=== PATIENT | female | born 1945 | race Caucasian/White ===

== ENCOUNTER 2020-12-05 08:07 | Emergency (ER) | payer BC ==
[2020-12-05] MEDS ORDERED: Sodium Chloride 0.9% 10 ML Syringe FLUSH PRN (08:41)
[2020-12-05 09:56] LABS: CHLORIDE,CL 112 mmol/L (98-107); SODIUM,NA 146 mmol/L (136-145)
[2020-12-05 09:59] LABS: ANION GAP 14.8 meq/L (7-15)
--- NOTE | 2020-12-05 10:36 | EDM.PDOC ---
ED HPI GENERAL MEDICAL PROBLEM - General Chief Complaint: Neuro Symptoms/Deficits Stated Complaint: stroke code Time Seen by Provider: 12/05/20 08:08 Source of Information: Reports: Patient, Family History Limitations: Reports: No Limitations - History of Present Illness INITIAL COMMENTS - FREE TEXT/NARRATIVE: Patient comes to ER with new left sided mouth droop and slurred speech. Last known well was around 3-3:30am when she got up to go to use bathroom. 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 Left arm weakness is worse than usual this morning. - Related Data Home Meds: Home Meds Aspirin [Aspirin EC] 325 mg PO DAILY 12/05/20 [History] Cholecalciferol (Vitamin D3) [Vitamin D3] 1,000 unit PO DAILY 12/05/20 [History] Darifenacin Hydrobromide [Darifenacin ER] 7.5 mg PO DAILY 12/05/20 [History] Gabapentin [Neurontin] 300 mg PO QID 12/05/20 [History] Multivitamin [Multivitamins] 1 each PO DAILY 12/05/20 [History] amLODIPine [Norvasc] 5 mg PO DAILY 12/05/20 [History] atorvaSTATin Calcium [Atorvastatin Calcium] 80 mg PO DAILY 12/05/20 [History] Past Medical History Cardiovascular History: Reports: High Cholesterol, Hypertension Genitourinary History: Reports: Other (See Below) (overactive bladder) Musculoskeletal History: Reports: Osteoarthritis (chronic back pain) Neurological History: Reports: CVA ED ROS GENERAL - Review of Systems Review Of Systems: See Below Constitutional: Reports: No Symptoms HEENT: Reports: No Symptoms Respiratory: Reports: No Symptoms Cardiovascular: Reports: No Symptoms GI/Abdominal: Reports: No Symptoms : Reports: No Symptoms Musculoskeletal: Reports: Shoulder Pain (left), Other (hip pain left) Skin: Reports: No Symptoms Neurological: Reports: Pre-Existing Deficit, Change in Speech, Other (increased left arm weakness, left facial droop, slurred speech) Psychiatric: Reports: No Symptoms Hematologic/Lymphatic: Reports: No Symptoms Immunologic: Reports: No Symptoms ED EXAM, GENERAL - Physical Exam Exam: See Below Exam Limited By: No Limitations General Appearance: Alert, No Apparent Distress Eye Exam: Bilateral Eye: EOMI, PERRL Ears: Hearing Grossly Normal Nose: No: Nasal Deformity, Nasal Swelling, Nasal Drainage Throat/Mouth: Normal Lips, No Airway Compromise Head: Other (Left corner of mouth droop) Neck: Supple Respiratory/Chest: No Respiratory Distress, Lungs Clear, Normal Breath Sounds, No Accessory Muscle Use Cardiovascular: Regular Rate, Rhythm, No Murmur GI/Abdominal: Soft, Non-Tender (Female) Exam: Deferred Rectal (Female) Exam: Deferred Back Exam: No: Muscle Spasm Extremities: Non-Tender, Normal Capillary Refill Neurological: Alert, Sensory/Motor Deficit (Left arm weakness/left corner mouth droop. Did not know year/unable to say name initially) Psychiatric: Normal Affect, Normal Mood Skin Exam: Warm, Dry, Intact, Normal Color #1 Interpretation EKG Date: 12/05/20 Time: 08:28 Rhythm: NSR Rate (Beats/Min): 100 [place]: Normal P-Wave: Present QRS: Other (intraventricular conduction delay) ST-T: Other (No obvious acute changes suggestive of ischemia) QT: Normal Comparison: NA - No Prior EKG Course - Orders/Labs/Meds Orders: Active Orders 24 hr Category Date Time Status EKG Documentation Completion [RC] ASDIRECTED Care 12/05/20 08:48 Active Chest 1V Frontal [CR] Stat Exams 12/05/20 08:33 Taken Head wo Cont [CT] Stat Exams 12/05/20 08:27 Taken UA W/MICROSCOPIC [URIN] Stat Lab 12/05/20 08:41 Ordered Sodium Chloride 0.9% [Saline Flush] Med 12/05/20 08:41 Active 10 ml FLUSH ASDIRECTED PRN Saline Lock Insert [OM.PC] Stat Oth 12/05/20 08:45 Ordered Medication Orders Sodium Chloride (Sodium Chloride 0.9% 10 Ml Syringe) 10 ml FLUSH ASDIRECTED PRN PRN Reason: Keep Vein Open Labs: Laboratory Tests 12/05/20 12/05/20 12/05/20 Range/Units 08:50 08:50 08:50 WBC (4.0-10.2) K/uL RBC (3.77-5.09) M/uL Hgb (11.7-15.5) g/dL Hct (34.0-46.0) % MCV (84.0-98.0) fL MCH (28.2-33.3) pg MCHC (31.7-36.0) g/dL RDW (11.2-14.1) % Plt Count (150-350) K/uL Add Manual Diff Neutrophils % (Manual) Lymphocytes % (Manual) Monocytes % (Manual) Eosinophils % (Manual) Absolute Neutrophils Lymphocytes # (Manual) Monocytes # (Manual) Eosinophils # (Manual) PT 11.1 (9.5-12.0) SEC INR 1.1 APTT (24.5-32.8) SEC D-Dimer, Quantitative 1650 H (0-400) ng/mL Sodium (136-145) mmol/L Potassium (3.5-5.1) mmol/L Chloride (98-107) mmol/L Carbon Dioxide (21.0-32.0) mmol/L Anion Gap (7-15) meq/L BUN (7-18) mg/dL Creatinine (0.51-1.17) mg/dL Est Cr Clr Drug Dosing Estimated GFR (MDRD) mL/min Glucose (70-99) mg/dL POC Glucose (70-99) mg/dL Lactic Acid (0.4-2.0) mmol/L Calcium (8.5-10.1) mg/dL Magnesium 2.0 (1.8-2.4) mg/dL Total Bilirubin (0.2-1.0) mg/dL AST (15-37) U/L ALT (12-78) U/L Alkaline Phosphatase (46-116) IU/L Troponin I High Sens 60 H* (<=51) ng/L NT-Pro-B Natriuret Pep 200 H (0-125) pg/mL Total Protein (6.4-8.2) g/dL Albumin (3.4-5.0) g/dL 12/05/20 12/05/20 12/05/20 Range/Units 08:50 08:50 08:50 WBC 28.2 H (4.0-10.2) K/uL RBC 5.15 H (3.77-5.09) M/uL Hgb 15.0 (11.7-15.5) g/dL Hct 46.7 H (34.0-46.0) % MCV 90.7 (84.0-98.0) fL MCH 29.1 (28.2-33.3) pg MCHC 32.1 (31.7-36.0) g/dL RDW 15.4 H (11.2-14.1) % Plt Count 782 H (150-350) K/uL Add Manual Diff Yes Neutrophils % (Manual) 84 Lymphocytes % (Manual) 5 Monocytes % (Manual) 10 Eosinophils % (Manual) 1 Absolute Neutrophils 23.6880 Lymphocytes # (Manual) 1.4100 Monocytes # (Manual) 2.8200 Eosinophils # (Manual) 0.2820 PT (9.5-12.0) SEC INR APTT 23.0 L (24.5-32.8) SEC D-Dimer, Quantitative (0-400) ng/mL Sodium (136-145) mmol/L Potassium (3.5-5.1) mmol/L Chloride (98-107) mmol/L Carbon Dioxide (21.0-32.0) mmol/L Anion Gap (7-15) meq/L BUN (7-18) mg/dL Creatinine (0.51-1.17) mg/dL Est Cr Clr Drug Dosing Estimated GFR (MDRD) mL/min Glucose (70-99) mg/dL POC Glucose (70-99) mg/dL Lactic Acid 1.6 (0.4-2.0) mmol/L Calcium (8.5-10.1) mg/dL Magnesium (1.8-2.4) mg/dL Total Bilirubin (0.2-1.0) mg/dL AST (15-37) U/L ALT (12-78) U/L Alkaline Phosphatase (46-116) IU/L Troponin I High Sens (<=51) ng/L NT-Pro-B Natriuret Pep (0-125) pg/mL Total Protein (6.4-8.2) g/dL Albumin (3.4-5.0) g/dL 12/05/20 12/05/20 Range/Units 08:50 08:50 WBC (4.0-10.2) K/uL RBC (3.77-5.09) M/uL Hgb (11.7-15.5) g/dL Hct (34.0-46.0) % MCV (84.0-98.0) fL MCH (28.2-33.3) pg MCHC (31.7-36.0) g/dL RDW (11.2-14.1) % Plt Count (150-350) K/uL Add Manual Diff Neutrophils % (Manual) Lymphocytes % (Manual) Monocytes % (Manual) Eosinophils % (Manual) Absolute Neutrophils Lymphocytes # (Manual) Monocytes # (Manual) Eosinophils # (Manual) PT (9.5-12.0) SEC INR APTT (24.5-32.8) SEC D-Dimer, Quantitative (0-400) ng/mL Sodium 146 H (136-145) mmol/L Potassium 3.4 L (3.5-5.1) mmol/L Chloride 112 H (98-107) mmol/L Carbon Dioxide 22.6 (21.0-32.0) mmol/L Anion Gap 14.8 (7-15) meq/L BUN 19 H (7-18) mg/dL Creatinine 0.86 (0.51-1.17) mg/dL Est Cr Clr Drug Dosing TNP Estimated GFR (MDRD) > 60 mL/min Glucose 124 H (70-99) mg/dL POC Glucose 113 H (70-99) mg/dL Lactic Acid (0.4-2.0) mmol/L Calcium 8.3 L (8.5-10.1) mg/dL Magnesium (1.8-2.4) mg/dL Total Bilirubin 1.5 H (0.2-1.0) mg/dL AST 28 (15-37) U/L ALT 39 (12-78) U/L Alkaline Phosphatase 105 (46-116) IU/L Troponin I High Sens (<=51) ng/L NT-Pro-B Natriuret Pep (0-125) pg/mL Total Protein 6.5 (6.4-8.2) g/dL Albumin 3.8 (3.4-5.0) g/dL Meds: Medications Generic Name Dose Route Start Last Admin Trade Name Freq PRN Reason Stop Dose Admin Sodium Chloride 10 ml 12/05/20 08:41 Sodium Chloride 0.9% 10 Ml Syringe FLUSH ASDIRECTED PRN Keep Vein Open - Radiology Interpretation Free Text/Narrative:: Chest xray portable. Some patchiness suggestive of CHF noted. Somewhat increased right lower lung field. - Re-Assessments/Exams Free Text/Narrative Re-Assessment/Exam: 12/05/20 10:[address] performed shortly after arrival. STroke scale 9. Labs performed. WBC quite elevated at 28.2 Platelets 782 DDimer 1650 Na increased at 146 K mild decrease 3.4 Trop mildly elevated at 60 Patient denies chest pain. Has chronic left shoulder and hip pain which has been bothering her. No obvious acute change in pain pattern per patient. No obvious ST changes suggestive of acute ischemia on EKG. ProBNP mildly elevated at 200. Vital signs stable. Call placed to [facility] and patient discussed with from Neuro. Not candidate for Alteplase. Patient noted to be improving at that time with better movement of left arm. Plans made to transfer patient to [facility] for CTA and possible MRI imaging with as accepting MD. [facility] notified of abnormal labs. Transferred by ground ambulance. Departure - Departure Time of Disposition: 10:15 Disposition: DC/Tfer to [facility] Condition: Good Clinical Impression: Stroke-like symptoms, Elevated troponin, Thrombocythemia, Elevated d-dimer, Hypernatremia, Hypokalemia, Elevated brain natriuretic peptide (BNP) level Elevated WBC count Qualifiers: Leukocytosis type: unspecified Qualified Code(s): D72.829 - Elevated white blood cell count, unspecified - Discharge Information *PRESCRIPTION DRUG MONITORING PROGRAM REVIEWED*: Not Applicable *COPY OF PRESCRIPTION DRUG MONITORING REPORT IN PATIENT FELIBERTO: Not Applicable - My Orders Last 24 Hours: My Active Orders 12/05/20 08:27 Head wo Cont [CT] Stat 12/05/20 08:33 Chest 1V Frontal [CR] Stat 12/05/20 08:41 UA W/MICROSCOPIC [URIN] Stat Sodium Chloride 0.9% [Saline Flush] 10 ml FLUSH ASDIRECTED PRN 12/05/20 08:45 Saline Lock Insert [OM.PC] Stat 12/05/20 08:48 EKG Documentation Completion [RC] ASDIRECTED - Assessment/Plan Last 24 Hours: My Active Orders 12/05/20 08:27 Head wo Cont [CT] Stat 12/05/20 08:33 Chest 1V Frontal [CR] Stat 12/05/20 08:41 UA W/MICROSCOPIC [URIN] Stat Sodium Chloride 0.9% [Saline Flush] 10 ml FLUSH ASDIRECTED PRN 12/05/20 08:45 Saline Lock Insert [OM.PC] Stat 08/11/21 08:48 EKG Documentation Completion [RC] ASDIRECTED
== END 2020-12-05 10:05 ==
LOC: LL.ED 08:07
DX: I63.9 Cerebral infarction, unspecified (principal); D69.6 Thrombocytopenia, unspecified; E87.1 Hypo-osmolality and hyponatremia; E87.6 Hypokalemia; R79.89 Other specified abnormal findings of blood chemistry; E78.00 Pure hypercholesterolemia, unspecified; I10 Essential (primary) hypertension; Z86.73 Personal history of transient ischemic attack (TIA), and cerebral infarction without residual deficits; Z79.82 Long term (current) use of aspirin; Z79.899 Other long term (current) drug therapy; D72.829 Elevated white blood cell count, unspecified
CPT/HCPCS: 36415; 70450; 71045; 80053; 82947; 83605; 83735; 83880; 84484; 85025; 85379; 85610; 85730; 93005; 93010; 99284; 99285-25

== ENCOUNTER 2022-11-11 05:15 | Emergency (ER) | payer MEDICARE, BC ==
[2022-11-11] MEDS ORDERED: Labetalol 20 MG/4 ML Syringe ONE (05:35)
[2022-11-11] MEDS ORDERED: Labetalol 20 MG/4 ML Syringe IVPUSH ONE ×2 (05:36→05:40)
[2022-11-11] MEDS ORDERED: Factor IX Complex Human 1,000 UNIT VIAL IV ONE ×2 (05:46→05:50)
[2022-11-11] MEDS ORDERED: niCARdipine/Normal Saline 0 ML ONE (05:50)
[2022-11-11 05:51] LABS: HEMATOCRIT 47.1 % (34.0-46.0); HEMOGLOBIN 14.8 g/dL (11.7-15.5); MEAN CORPUSCULAR HEMOGLOBIN 30.5 pg (28.2-33.3); MEAN CORPUSCULAR HGB CONC 31.4 g/dL (31.7-36.0); MEAN CORPUSCULAR VOLUME 96.9 fL (84.0-98.0); PLATELET COUNT,PLT 434 K/uL (150-350); RED BLOOD CELL COUNT 4.86 M/uL (3.77-5.09); RED CELL DISTRIBUTION WIDTH 16.4 % (11.2-14.1); WHITE BLOOD CELL COUNT,WBC 32.4 K/uL (4.0-10.2)
[2022-11-11] MEDS ORDERED: Tranexamic Acid 1,000 MG in Sodium Chloride 0.9% 100 ML IV ONE (05:53)
[2022-11-11] MEDS ORDERED: niCARdipine/Normal Saline 200 ML IV ONE (05:55)
[2022-11-11 06:06] LABS: ALANINE AMINOTRANSFERASE,ALT 36 U/L (12-78); ALKALINE PHOSPHATASE 100 IU/L (46-116); ANION GAP 13.8 meq/L (7-15); ASPARTATE AMNIOTRANSFERASE,AST 39 U/L (15-37); BILIRUBIN TOTAL 2.1 mg/dL (0.2-1.0); BLOOD UREA NITROGEN,BUN 11 mg/dL (7-18); CALCIUM 8.8 mg/dL (8.5-10.1); CARBON DIOXIDE,CO2 22.2 mmol/L (21.0-32.0); CHLORIDE,CL 106 mmol/L (98-107); CREATINE KINASE,CK 55 U/L (26-308); CREATININE 0.83 mg/dL (0.51-1.17); GLUCOSE RANDOM 144 mg/dL (70-99); MAGNESIUM 1.8 mg/dL (1.8-2.4); POTASSIUM,K 4.7 mmol/L (3.5-5.1); PRO B-TYPE NATRIUR PEPT,BNPPRO 141 pg/mL (0-125); PROTEIN TOTAL,TP 7.2 g/dL (6.4-8.2); SODIUM,NA 142 mmol/L (136-145)
[2022-11-11 06:07] LABS: BAND PERCENT MAN 5; EOSINOPHILS PERCENT MAN 3; ESTIMATED GFR 72 mL/min (>=60); LYMPHOCYTES PERCENT MAN 37; MONOCYTES PERCENT MAN 14; SEG NEUTROPHILS PERCENT MAN 41
[2022-11-11 06:10] LABS: INR 1.2; PROTHROMBIN TIME 11.8 SEC (9.0-11.1); PTT,PARTIAL THROMBOPLSTIN TIME 28.8 SEC (23.6-29.8)
[2022-11-11 07:02] LABS: APPEARANCE,URINE CLEAR; BILIRUBIN,URINE NEGATIVE (NEGATIVE); COLOR,URINE YELLOW; GLUCOSE,URINE NEGATIVE (NEGATIVE); KETONES,URINE NEGATIVE (NEGATIVE); LEUKOCYTE ESTERASE,URINE NEGATIVE (NEGATIVE); NITRITE,URINE NEGATIVE (NEGATIVE); OCCULT BLOOD,URINE TRACE-LYSED (NEGATIVE); PROTEIN,URINE 100 mg/dL (NEGATIVE); UROBILINOGEN,URINE 0.2 E.U./dL (0.2-1.0)
[2022-11-11] MEDS ORDERED: niCARdipine/Normal Saline 200 ML ONE (07:07)
[2022-11-11 07:13] LABS: BACTERIA,URINE RARE /HPF (NONE TO FEW); EPITHELIAL CELLS,URINE FEW /LPF; RBC,URINE 0-5 /HPF; WBC,URINE 0-5 /HPF
== END 2022-11-11 07:33 ==
LOC: LL.ED 05:15
DX: I62.9 Nontraumatic intracranial hemorrhage, unspecified (principal); R47.81 Slurred speech; R29.810 Facial weakness; E78.00 Pure hypercholesterolemia, unspecified; I10 Essential (primary) hypertension; M19.90 Unspecified osteoarthritis, unspecified site; Z79.82 Long term (current) use of aspirin; Z79.899 Other long term (current) drug therapy
CPT/HCPCS: 31500; 36415; 51702; 70450; 71045; 80053; 81001; 82550; 83735; 83880; 84484; 85025; 85379; 85610; 85730; 93005; 96374; 96375; 96376; 99291-25; 99292; J3490; J7168